=== PATIENT | female | born 1975 | race Caucasian/White ===

== ENCOUNTER 2017-05-14 16:14 | Emergency (ER) | payer OTHER ==
[~2017-05-14] VITALS: Ht 157.5 cm; Wt 83.5 kg
--- NOTE | ~2017-05-14 | EKG ---
[place] [address] [facility] [employer] [place] [address] ELECTROCARDIOGRAM REPORT Name: GIBSON BARAJAS 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
[2017-05-14 17:16] LABS: ABSOLUTE NEUTROPHILS 7.5 thou/uL (1.4-8.2); BASOPHILS 0.3 % (0.0-2.0); HEMATOCRIT 39.4 % (37.0-47.0); HEMOGLOBIN 13.4 gm/dL (12.0-15.0); LYMPHOCYTES 8.6 % (24.0-44.0); MCH 30.5 pg (26.0-34.0); MCV 89.6 fL (80.0-100.0); PLATELET COUNT 340 thou/uL (150-400); POLYS 90.1 % (36.0-66.0); RDW 13.5 % (10.5-14.5); WBC 8.3 thou/uL (4.0-11.0)
[2017-05-14 17:37] LABS: ANION GAP 8 mmol/L (7-16); BUN 13 mg/dL (7-18); CALCIUM 9.1 mg/dL (8.5-10.1); CHLORIDE 102 mmol/L (98-107); CO2 29 mmol/L (21-32); CREATININE 0.7 mg/dL (0.6-1.0); GLUCOSE 149 mg/dL (74-106); POTASSIUM 3.8 mmol/L (3.5-5.1); SODIUM 139 mmol/L (136-145)
[2017-05-14 17:46] LABS: TROPONIN-I < 0.04 ng/mL (<0.06)
== END 2017-05-14 18:40 | disposition home or self-care (01) ==
LOC: ER 16:14
PROVIDERS: Physician Assistant
DX: G89.18 Other acute postprocedural pain (principal); M25.572 Pain in left ankle and joints of left foot; R06.02 Shortness of breath; R20.0 Anesthesia of skin

== ENCOUNTER 2019-10-12 16:37 | Emergency (ER) | payer OTHER ==
[~2019-10-12] VITALS: Ht 160 cm; Wt 80.7 kg
[2019-10-12 17:37] LABS: ABSOLUTE NEUTROPHILS 3.4 thou/uL (1.4-8.2); BASOPHILS 0.8 % (0.0-2.0); EOSINOPHILS 0.3 % (0.0-3.0); HEMATOCRIT 40.7 % (37.0-47.0); LYMPHOCYTES 34.2 % (24.0-44.0); MCH 30.7 pg (26.0-34.0); MCHC 34.3 g/dL (28.0-37.0); MCV 89.4 fL (80.0-100.0); MONOCYTES 11.9 % (1.0-8.0); PLATELET COUNT 245 thou/uL (150-400); POLYS 52.8 % (36.0-66.0); RBC 4.56 mil/uL (4.20-5.00); WBC 6.4 thou/uL (4.0-11.0)
[2019-10-12 17:44] LABS: ANION GAP 10 mmol/L (7-16); BUN 16 mg/dL (7-18); CALCIUM 8.6 mg/dL (8.5-10.1); CHLORIDE 103 mmol/L (98-107); CO2 25 mmol/L (21-32); CREATININE 0.7 mg/dL (0.6-1.0); GLUCOSE 106 mg/dL (74-106); POTASSIUM 3.2 mmol/L (3.5-5.1); SODIUM 138 mmol/L (136-145)
[2019-10-12 17:54] LABS: ALBUMIN 3.4 g/dL (3.4-5.0); SGOT 91 U/L (15-37); SGPT 137 U/L (30-65); TOTAL BILIRUBIN 0.2 mg/dL (0.2-1.0); TROPONIN-I <0.06 ng/mL (<0.06)
[2019-10-12] MEDS ORDERED: PROMETH-CODEIN 65 ML PO (18:48)
[2019-10-12] MEDS ORDERED: PROAIR HFA8.5 GM INH (18:48)
[2019-10-12 20:25] VITALS: BP 127/92
--- NOTE | 2019-10-13 07:42 | EKG ---
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
== END 2019-10-12 20:26 | disposition home or self-care (01) ==
LOC: ER 16:37
PROVIDERS: Physician Assistant
DX: U07.1 COVID-19 (principal); Z90.49 Acquired absence of other specified parts of digestive tract; Z98.890 Other specified postprocedural states